=== PATIENT | female | born 1965 | race Caucasian/White ===

== ENCOUNTER 2021-08-18 18:35 | Emergency (ER) | payer OTHER ==
[~2021-08-18] VITALS: Ht 160 cm; Wt 76.7 kg
[2021-08-18 19:00] VITALS: BP 145/93
[2021-08-18 20:31] LABS: BASOPHILS % (AUTO) 0.7 % (0.0-2.0); EOSINOPHILS # (AUTO) 0.1 K/uL (0-0.4); EOSINOPHILS % (AUTO) 1.5 % (0.0-4.0); HEMATOCRIT 31.1 % (36-48); HEMOGLOBIN 10.2 g/dL (12.0-16.0); LYMPHOCYTES # (AUTO) 0.8 K/uL (2.5-16.5); LYMPHOCYTES % (AUTO) 15.5 % (20.5-51.1); MEAN CORPUSCULAR HEMOGLOBIN 28 pg (27-31); MEAN CORPUSCULAR HGB CONC 33 g/dL (33-37); MEAN CORPUSCULAR VOLUME 83.3 fL (80-94); MONOCYTES # (AUTO) 0.3 K/uL (0.8-1.0); MONOCYTES % (AUTO) 5.3 % (1.7-9.3); PLATELET COUNT (AUTO) 167 K/uL (140-450); RED BLOOD CELL COUNT(AUTO) 3.73 MIL/uL (4.20-5.40); RED CELL DISTRIBUTION WIDTH 15.4 % (11.6-13.7); WHITE BLOOD COUNT (AUTO) 5.2 K/uL (4.8-10.8)
[2021-08-18 20:32] LABS: ANION GAP 10.7 (8-16); CREATININE 0.9 mg/dL (0.6-1.3); POTASSIUM 3.7 mmol/L (3.5-5.1); TOTAL BILIRUBIN 0.3 mg/dL (0.0-1.0)
[2021-08-18 20:33] LABS: ALBUMIN 3.2 g/dL (3.4-5.0)
--- NOTE | 2021-08-18 22:11 | NUR ---
PT TAKEN TO ULTRASOUND BY W/Jeronimo
--- NOTE | 2021-08-18 22:31 | NUR ---
PT BROUGHT BACK FROM ULTRASOUND VIA W/C.
[2021-08-18 23:30] VITALS: BP 138/76
--- NOTE | 2021-08-18 23:30 | NUR ---
Patient discharged with v/s stable. Written and verbal after care instructions given and explained. Patient verbalized understanding. Ambulatory with steady gait. All questions addressed prior to discharge. Advised to follow up with PMD.
== END 2021-08-18 23:30 | disposition home or self-care (01) ==
LOC: EDSEX 18:35 → MED 18:35
DX: R10.11 Right upper quadrant pain (principal); R10.12 Left upper quadrant pain
CPT/HCPCS: 36415; 71045; 76705; 80053; 83690; 84484; 85025; 93005; 99285; Q0092

== ENCOUNTER 2022-02-17 16:51 | Emergency (ER) | payer OTHER ==
[~2022-02-17] VITALS: Ht 160 cm; Wt 71.9 kg
[2022-02-17 17:16] VITALS: BP 130/70
--- NOTE | 2022-02-17 19:24 | NUR ---
DR FAJARDO ATTEMPTED TO BRING PT BACK. PATIENT LEFT WITHOUT BEING SEEN BY DR. FAJARDO. NO FURTHER CARE PROVIDED FOR PATIENT.
[2022-02-18] MEDS ORDERED: METF-350 PO (16:24)
[2022-02-18] MEDS ORDERED: LOSA100T1 PO (16:24)
== END 2022-02-17 19:24 | disposition left against medical advice (07) ==
LOC: MED 16:51
DX: R53.1 Weakness (principal); Z53.21 Procedure and treatment not carried out due to patient leaving prior to being seen by health care provider

== ENCOUNTER 2022-02-18 11:03 | Inpatient (IN) | payer OTHER ==
[~2022-02-18] VITALS: Ht 160 cm; Wt 67.1 kg
[2022-02-18 11:08] VITALS: BP 115/64
--- NOTE | 2022-02-18 13:20 | NUR ---
PT AMBULATED TO ER BED 9
--- NOTE | 2022-02-18 13:56 | NUR ---
Female Automotive Brake Specialist FOR DR. AMAYA, accompanied female patient for Rectal Exam.
--- NOTE | 2022-02-18 13:58 | NUR ---
56/F PRESENTS TO ED WITH C/O FATIGUE, EPISODES OF DIZZINESS AND NAUSEA X2 MONTHS WORSENING IN THE LAST 3 DAYS. PATIENT REPORTS SHE WAS SEEN AT URGENT CARE AND WAS TOLD HER HEMOGLOBIN WAS 7.3. PATIENT REPORTS HX OF CIRRHOSIS, DENIES V/D, URINARY SYMPTOMS, BLOOD IN STOOL. DENIES CP OR SOB.
[2022-02-18 14:29] LABS: BASOPHILS % (AUTO) 0.7 % (0.0-2.0); EOSINOPHILS # (AUTO) 0.1 K/uL (0-0.4); EOSINOPHILS % (AUTO) 1.8 % (0.0-4.0); LYMPHOCYTES # (AUTO) 0.8 K/uL (2.5-16.5); LYMPHOCYTES % (AUTO) 16.7 % (20.5-51.1); MEAN CORPUSCULAR HEMOGLOBIN 19 pg (27-31); MEAN CORPUSCULAR HGB CONC 29 g/dL (33-37); MEAN CORPUSCULAR VOLUME 64.3 fL (80-94); MONOCYTES # (AUTO) 0.3 K/uL (0.8-1.0); NEUTROPHILS # (AUTO) 3.6 K/uL (1.8-7.7); NEUTROPHILS % (AUTO) 73.8 % (42.2-75.2); PLATELET COUNT (AUTO) 215 K/uL (140-450); RED BLOOD CELL COUNT(AUTO) 3.42 MIL/uL (4.20-5.40); RED CELL DISTRIBUTION WIDTH 20.2 % (11.6-13.7); WHITE BLOOD COUNT (AUTO) 4.9 K/uL (4.8-10.8)
[2022-02-18 14:33] LABS: HEMOGLOBIN 6.5 g/dL (12.0-16.0)
--- NOTE | 2022-02-18 14:35 | NUR ---
UDAY SWAB COLLECTED AND WALKED TO LAB
[2022-02-18 14:39] LABS: ALBUMIN 2.9 g/dL (3.4-5.0); ANION GAP 14.5 (8-16); ASPARTATE AMINOTRANSFERASE 71 U/L (15-37); CARBON DIOXIDE 23.3 mmol/L (21-32); CHLORIDE 103 mmol/L (98-107); CREATININE 0.8 mg/dL (0.6-1.3); GFR ARICAN-AMERICAN 96 mL/min (>90); GLUCOSE 305 mg/dL (74-106); POTASSIUM 3.8 mmol/L (3.5-5.1); SODIUM SERUM 137 mmol/L (136-145); TOTAL BILIRUBIN 0.4 mg/dL (0.0-1.0); UREA NITROGEN, BLOOD 18 mg/dL (7-18)
--- NOTE | 2022-02-18 15:40 | NUR ---
OBTAINED CONSENT FOR BLOOD TRANSFUSION. MIKE ASSEMBLER FINGER BUFFS #[id number] USED.
--- NOTE | 2022-02-18 16:10 | NUR ---
Consent signed per DR. CONTRERAS AND PATIENT agreeing to administration of blood. Blood has been type and crossmatched. Blood sent from blood bank. Information on unit of blood checked against patient wristband at bedside by two nurses. All information matches. Patient or responsible democrat informed of potential complications associated with blood transfusion. Informed of possible transfusion reaction symptoms. Aware of need to notify nurse at once of itching, shortness of breath, flushing, feeling of impending doom, or other symptoms not previously present. Vital signs taken within 5 minutes prior to initiation of transfusion. RN will remain with patient for first 15 minutes of transfusion at which time vital signs will be re-assessed.
[2022-02-18] MEDS ORDERED: LOSA100T1 PO (16:24)
[2022-02-18] MEDS ORDERED: METF-350 PO (16:24)
[2022-02-18] MEDS ORDERED: MORPHINE SULFATE 4 MG/ML SYR IVP PRN (17:40)
[2022-02-18] MEDS ORDERED: MAGNESIUM OXIDE 400 MG TAB PO PRN (17:40)
[2022-02-18] MEDS ORDERED: ONDANSETRON 4 MG/2 ML VIAL IVP PRN (17:40)
[2022-02-18] MEDS ORDERED: MAG SULF 2000 MG/WATER PREMIX 50 ML IV PRN (17:40)
[2022-02-18] MEDS ORDERED: KCL 20 MEQ/WATER INJ PREMIX 200 ML IV PRN (17:40)
[2022-02-18] MEDS ORDERED: ACETAMINOPHEN 325 MG TAB PO PRN (17:40)
[2022-02-18] MEDS ORDERED: POTASSIUM CHLORIDE 10 MEQ TABER PO PRN (17:40)
[2022-02-18] MEDS ORDERED: HYDROcodone/APAP 5/325 MG 1 TAB TAB PO PRN (17:40)
--- NOTE | 2022-02-18 17:43 | NUR ---
PATIENT RESTING IN BED WITH EYES CLOSED, ON BEDSIDE WEB SERVICES MANAGER. ALL NEEDS MET AT THIS TIME.
[2022-02-18] MEDS ORDERED: INSULIN LISPRO SLIDING SCALE 100 UNITS/ML VIAL SUBQ PRN (17:45)
[2022-02-18] MEDS ORDERED: DEXTROSE 50% 50 ML SYR IVP PRN (17:45)
--- NOTE | 2022-02-18 19:22 | NUR ---
Pt report given to YAN ADAMS. Transfer of care at this time.
--- NOTE | 2022-02-18 19:54 | NUR ---
Patient will be admitted to care of SANDRINE PLASCENCIA MD. Admited to MED/SURG. Will go to room 104A. Belongings list completed. Report to DIMPLE HEREDIA.
--- NOTE | 2022-02-18 20:00 | NUR ---
RECEIVED PT FROM ER ADMITTED TO [facility], CAME IN VIA [facility]. AWAKE, ALERT, ORIENTED AND VERBALLY RESPONSIVE. PT ADMITTED WITH CHIEFT COMPLAINTS OF GENERAL WEAKNESS, DIAGNOSIS OF ANEMIA. PT HAS HISTORY OF ANEMIA, DM AND CIRRHOSIS. NO ALLERGY AND IS A FULL CODE STATUS. PT IS AMBULATORY AND ABLE TO AMBULATE FROM [facility] TO HER BED. SHE IS WITH CONSISTENT CARB DIET. SHE IS CONTINENT AND AMBULATE TO REST ROOM. SALINE LOCK INTACT AND PATENT ON RIGHT AC 20G. SKIN INTACT. PATIENT JUST COMPLETED RECEIVING BLOOD TRANSFUSION 1 PACK RBC IN ER. PT DENIES OF PAIN AT THIS TIME. CONTINUE MONITORING.
[2022-02-18] MEDS: BLOOD GLUCOSE MONITORING 1 DEV DEV FS SCH (21:00)
--- NOTE | 2022-02-18 21:00 | NUR ---
BLOOD SUGAR CHECK = 149, NO SLIDING SCALE COVERAGE.
--- NOTE | 2022-02-18 21:30 | NUR ---
PT REQUESTED MEAL AND DINNER IN THE ROOM.
[2022-02-18 22:03] LABS: HEMATOCRIT 24.6 % (36-48); HEMOGLOBIN 7.5 g/dL (12.0-16.0)
--- NOTE | 2022-02-19 00:15 | NUR ---
PT SLEEPING WELL. NO SOB OR DISTRESS.
--- NOTE | 2022-02-19 02:00 | NUR ---
PT ASLEEP, NO FACIAL GRIMACING. NO SOB OR DISTRESS.
[2022-02-19 04:00] VITALS: BP 126/54
--- NOTE | 2022-02-19 06:38 | NUR ---
PT IS ASLEEP BUT AROUSABLE ON STIMULI. BLOOD SUGAR CHECKED = 150, NO SLIDING SCALE COVERAGE.
--- NOTE | 2022-02-19 07:30 | NUR ---
RECEIVED BEDSIDE REPORT FROM SUPERVISOR FABRICATION NURSE FOR CONTINUOUS OF CARE, PT RESTING, NO DISTRESS NOTED, IV TO RAC 20G PATENT INTACT, SL. PT ON ROOM AIR, NO SOB NOTED, INITIAL ASSESSMENT DONE, ALL SAFETY PRECAUTION MET, CALL LIGHT WITHIN REACH, WILL CONTINUE TO MONTIOR.
[2022-02-19 07:31] LABS: BASOPHILS % (AUTO) 0.7 % (0.0-2.0); EOSINOPHILS # (AUTO) 0.1 K/uL (0-0.4); EOSINOPHILS % (AUTO) 2.5 % (0.0-4.0); HEMATOCRIT 26.4 % (36-48); HEMOGLOBIN 7.9 g/dL (12.0-16.0); LYMPHOCYTES % (AUTO) 23.9 % (20.5-51.1); MEAN CORPUSCULAR HEMOGLOBIN 20 pg (27-31); MEAN CORPUSCULAR HGB CONC 30 g/dL (33-37); MEAN CORPUSCULAR VOLUME 68.3 fL (80-94); MONOCYTES # (AUTO) 0.3 K/uL (0.8-1.0); MONOCYTES % (AUTO) 7.5 % (1.7-9.3); NEUTROPHILS # (AUTO) 2.8 K/uL (1.8-7.7); NEUTROPHILS % (AUTO) 65.4 % (42.2-75.2); PLATELET COUNT (AUTO) 190 K/uL (140-450); RED BLOOD CELL COUNT(AUTO) 3.87 MIL/uL (4.20-5.40); RED CELL DISTRIBUTION WIDTH 22.7 % (11.6-13.7); WHITE BLOOD COUNT (AUTO) 4.3 K/uL (4.8-10.8)
[2022-02-19] MEDS: BLOOD GLUCOSE MONITORING 1 DEV DEV FS SCH ×2 (07:50→12:08)
[2022-02-19 08:00] VITALS: BP 132/87
[2022-02-19 08:02] LABS: ALBUMIN 2.7 g/dL (3.4-5.0); ANION GAP 10.7 (8-16); CREATININE 0.6 mg/dL (0.6-1.3); MAGNESIUM 1.8 mg/dL (1.8-2.4); POTASSIUM 3.7 mmol/L (3.5-5.1); TOTAL BILIRUBIN 0.5 mg/dL (0.0-1.0)
[2022-02-19] MEDS ORDERED: DOCUSATE SODIUM 100 MG GELCAP PO SCH (09:00)
--- NOTE | 2022-02-19 09:15 | NUR ---
PT REFUSED COLACE STATED SHE IS GOING FINE AND DOES NOT NEED MEDS. PT STATED HAVING HEADACHE. TYLENOL PER DR ORDER GIVEN, WILL CONTINUE TO MONITOR.
--- NOTE | 2022-02-19 09:25 | NUR ---
PATIENT HAS BEEN SCREENED AND CATEGORIZED LOW NUTRITION RISK. PATIENT WILL BE SEEN WITHIN 7 DAYS OF ADMISSION. 02/25/22 REVIEWED BY PERRY ECHE[address]RIA RD
--- NOTE | 2022-02-19 13:36 | NUR ---
DC PLANNING SW MET WITH PATIENT AT BEDSIDE TO COMPLETE ASSESSMENT.PATIENT REPORTS RESIDING AT HOME WITH HER THREE SONS AT THE ADDRESS LISTED ON FILE. PATIENT IDENTIFIES HER DAUGHTER, OSMANI CRUZ [phone] EMERGENCY CONTACT AND MDM. PATIENT DENIES HAVING AD IN PLACE AND DECLINED AD OFFERED BY JAVY. PATIENT REPORTS MEETING WITH PCP CONSISTENTLY, LAST VISIT; JAN 19. 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 PATIENT REPORTS RECEIVING MEDICATION FROM HALIMA YANG ON [facility] IN [place], WHEN NEEDED. PATIENT REPORTS BEING INDEPENDENT IN ALL ACTIVITIES AND DENIES USE OF DME. PATIENT REPORTS [employer] AND REPORTS THAT SHE CURRENTLY WORKS AT [employer]. PATIENT REPORTS DC PLAN IS TO RETURN HOME, PATIENT TO PROVIDE HER OWN TRANSPORTATION HOME, SHE DRIVE HERE. SW INQUIRED ON ADDITIONAL RESOURCES NEEDED, PATIENT DECLINED.
[2022-02-19] MEDS ORDERED: FERR325E14 PO (15:24)
[2022-02-19] MEDS ORDERED: ASCO500T95 PO (15:24)
--- NOTE | 2022-02-19 16:30 | NUR ---
DC INSTRUCTION GIVEN, PT STATED UNDERSTANDING, ALL QUESTIONS ANSWERED. IV TAKEN OUT, CATH INTACT.
--- NOTE | 2022-02-19 16:45 | NUR ---
PT LEFT UNIT IN STABLE CONDITION WITH FAMILY.
== END 2022-02-19 16:45 | disposition home or self-care (01) | DRG 663 ==
LOC: MED 11:03 → MMU 17:42 → MTU 19:22
PROVIDERS: ADMIT Hospitalist; ATTEND Hospitalist
PROC: 30233N1 Transfusion of Nonautologous Red Blood Cells into Peripheral Vein, Percutaneous Approach (ICD-10-PCS; principal; 2022-02-18)
DX: D50.0 Iron deficiency anemia secondary to blood loss (chronic) (principal); E44.1 Mild protein-calorie malnutrition; K74.60 Unspecified cirrhosis of liver; E88.09 Other disorders of plasma-protein metabolism, not elsewhere classified; D64.9 Anemia, unspecified; E11.65 Type 2 diabetes mellitus with hyperglycemia; Z20.822 Contact with and (suspected) exposure to COVID-19; K80.20 Calculus of gallbladder without cholecystitis without obstruction; Z79.899 Other long term (current) drug therapy
CPT/HCPCS: 36415; 80053; 82948; 83735; 84484; 85018; 85025; 86886; 86900; 86901; 86920; 87081; 99285; J1815; P9016

== ENCOUNTER 2023-07-09 13:06 | Day surgery (SDC) | payer OTHER ==
[~2023-07-09] VITALS: Ht 160 cm; Wt 70.8 kg
[~2023-07-09 13:06] MED LIST: ASCO500T95 PO; FERR325E14 PO; LOSA-272 PO; METF-350 PO
[2023-07-09 14:38] LABS: BASOPHILS % (AUTO) 0.5 % (0.0-2.0); EOSINOPHILS # (AUTO) 0.1 K/uL (0-0.4); EOSINOPHILS % (AUTO) 1.6 % (0.0-4.0); HEMATOCRIT 39.2 % (36-48); HEMOGLOBIN 13.6 g/dL (12.0-16.0); LYMPHOCYTES # (AUTO) 1.1 K/uL (2.5-16.5); LYMPHOCYTES % (AUTO) 20.9 % (20.5-51.1); MEAN CORPUSCULAR HEMOGLOBIN 31 pg (27-31); MEAN CORPUSCULAR HGB CONC 35 g/dL (33-37); MEAN CORPUSCULAR VOLUME 88.2 fL (80-94); MONOCYTES # (AUTO) 0.4 K/uL (0.8-1.0); MONOCYTES % (AUTO) 6.8 % (1.7-9.3); NEUTROPHILS # (AUTO) 3.9 K/uL (1.8-7.7); NEUTROPHILS % (AUTO) 70.2 % (42.2-75.2); PLATELET COUNT (AUTO) 108 K/uL (140-450); RED BLOOD CELL COUNT(AUTO) 4.45 MIL/uL (4.20-5.40); RED CELL DISTRIBUTION WIDTH 13.9 % (11.6-13.7); WHITE BLOOD COUNT (AUTO) 5.5 K/uL (4.8-10.8)
[2023-07-09 14:49] LABS: INR 1.07 (0.8-1.2); PARTIAL THROMBOPLASTIN TIME 25.2 secs (22-35.6); PROTHROMBIN TIME 11.2 secs (10.8-13.4)
[2023-07-09] MEDS ORDERED: fentaNYL citrate 0.05 MG/ML VIAL ONE (15:50)
[2023-07-09] MEDS: LIDOCAINE 1% 500 MG/50 ML VIAL ONE (15:55)
[2023-07-09] MEDS: fentaNYL citrate 0.05 MG/ML VIAL IVP ONE (16:00)
[2023-07-09] MEDS: ACETAMINOPHEN EXTRA STRENGTH 500 MG TAB ONE (16:35)
== END 2023-07-09 17:25 | disposition home or self-care (01) ==
LOC: MDS 13:06 → MMU 13:53 → MDS 17:25
PROVIDERS: ATTEND Internal Medicine Gastroenterology
DX: K70.9 Alcoholic liver disease, unspecified (principal); I10 Essential (primary) hypertension; E11.9 Type 2 diabetes mellitus without complications; E78.5 Hyperlipidemia, unspecified; Z87.891 Personal history of nicotine dependence; Z79.84 Long term (current) use of oral hypoglycemic drugs; Z79.899 Other long term (current) drug therapy
CPT/HCPCS: 36415; 47000; 76942; 82948; 85025; 85610; 85730; J2001; J3010; Q0092; 88309; 88313